=== PATIENT | female | born 1980 | race Caucasian/White ===

== ENCOUNTER 2020-10-03 18:19 | Emergency (ER) | payer SELFPAY ==
[~2020-10-03] VITALS: Ht 157.5 cm; Wt 64.4 kg
[2020-10-03 18:33] VITALS: BP 142/80
[2020-10-03] MEDS ORDERED: CLIN150C1 PO (20:29)
[2020-10-03] MEDS ORDERED: [UNRECOGNIZED DRUG - CODE] TP (20:29)
[2020-10-03 20:43] VITALS: BP 142/80
== END 2020-10-03 20:40 | disposition home or self-care (01) ==
LOC: MED 18:19
DX: L03.115 Cellulitis of right lower limb (principal)
CPT/HCPCS: 99283

== ENCOUNTER 2020-10-06 14:42 | Emergency (ER) | payer SELFPAY ==
[~2020-10-06] VITALS: Ht 157.5 cm; Wt 64.4 kg
[~2020-10-06 14:42] MED LIST: CLIN150C1 PO; [UNRECOGNIZED DRUG - CODE] TP
[2020-10-06 14:44] VITALS: BP 124/82
--- NOTE | 2020-10-06 14:55 | NUR ---
ROC SHANKS AT BEDSIDE EVALUATING PT
--- NOTE | 2020-10-06 15:10 | NUR ---
20 G IV ESTABLISHED TO L . BLOOD SAMPLE COLLECTED VIA IV AND SAMPLES HANDED TO WAIST CUTTER.
[2020-10-06] MEDS ORDERED: KETOROLAC 30 MG/ML VIAL IVP ONE (15:15)
[2020-10-06 15:27] LABS: BASOPHILS % (AUTO) 0.4 % (0.0-2.0); EOSINOPHILS # (AUTO) 0.1 K/uL (0-0.4); EOSINOPHILS % (AUTO) 2.5 % (0.0-4.0); HEMATOCRIT 39.1 % (36-48); HEMOGLOBIN 13.2 g/dL (12.0-16.0); LYMPHOCYTES # (AUTO) 1.2 K/uL (2.5-16.5); LYMPHOCYTES % (AUTO) 23.7 % (20.5-51.1); MEAN CORPUSCULAR HEMOGLOBIN 29 pg (27-31); MEAN CORPUSCULAR HGB CONC 34 g/dL (33-37); MEAN CORPUSCULAR VOLUME 86.5 fL (80-94); MONOCYTES # (AUTO) 0.4 K/uL (0.8-1.0); MONOCYTES % (AUTO) 8.2 % (1.7-9.3); NEUTROPHILS # (AUTO) 3.4 K/uL (1.8-7.7); NEUTROPHILS % (AUTO) 65.2 % (42.2-75.2); PLATELET COUNT (AUTO) 317 K/uL (140-450); RED BLOOD CELL COUNT(AUTO) 4.52 MIL/uL (4.20-5.40); RED CELL DISTRIBUTION WIDTH 13.8 % (11.6-13.7); WHITE BLOOD COUNT (AUTO) 5.3 K/uL (4.8-10.8)
[2020-10-06] MEDS ORDERED: KETOROLAC 60 MG/2 ML VIAL IM ONE (15:32)
[2020-10-06 15:43] LABS: ALBUMIN 4.2 g/dL (3.4-5.0); ANION GAP 12.1 (8-16); CARBON DIOXIDE 26.9 mmol/L (21-32); CREATININE 0.9 mg/dL (0.6-1.3); TOTAL BILIRUBIN 0.7 mg/dL (0.0-1.0)
--- NOTE | 2020-10-06 15:53 | NUR ---
RAD AT BEDSIDE
[2020-10-06] MEDS ORDERED: CEPH-588 PO (16:09)
[2020-10-06] MEDS ORDERED: BACTO TP (16:09)
--- NOTE | 2020-10-06 16:37 | NUR ---
PATIENT HERE FOR RECHECK OF CELLULITIS TO RIGHT LOWER LEG, RETURNS WITH C/O WOUND DEEPER AND MORE PAINFUL. PHOTOS WITH MEASUREMENTS OBTAINED. IV ACCESS OBTAINED, LABS AND BLOOD CULTURES OBTAINED, MEDICATED FOR PAIN. PATIENT IS AWAKE ALERT, SKIN IS OTHERWISE WARM AND DRY, RESP EVEN AND UNLABORED, ABD SOFT AND NON DISTENDED. BED IN LOW POSITION WITH SIDERAILS UP. PATIENT ENDORSES HX OF LUPUS.
[2020-10-06 16:45] VITALS: BP 124/82
--- NOTE | 2020-10-06 16:51 | NUR ---
Patient discharged with v/s stable. Written and verbal after care instructions given and explained. Patient alert, oriented and verbalized understanding of instructions. Ambulatory with steady gait. All questions addressed prior to discharge. ID band removed. Patient advised to follow up with PMD. Rx of MUPIROCHIN AND CEPHALEXIN given. Patient educated on indication of medication including possible reaction and side effects. Opportunity to ask questions provided and answered.
== END 2020-10-06 16:51 | disposition home or self-care (01) ==
LOC: MED 14:42
DX: L03.116 Cellulitis of left lower limb (principal)
CPT/HCPCS: 36415; 73590; 80053; 83605; 85025; 87040; 96374; 99284; J1885

== ENCOUNTER 2020-10-08 16:40 | Emergency (ER) | payer SELFPAY ==
[~2020-10-08] VITALS: Ht 157.5 cm; Wt 64.4 kg
[~2020-10-08 16:40] MED LIST changes: +BACTO TP; +CEPH-588 PO
[2020-10-08 17:02] VITALS: BP 117/84
--- NOTE | 2020-10-08 17:42 | NUR ---
Patient transferred to bed 4 via wheelchair by tech. Family at bedside.
--- NOTE | 2020-10-08 17:50 | NUR ---
3 Y/O FEMALE C/O RT LEG PAIN. WOUND TO RT LOWER LEG FOR 10 DAYS. WAS SEEN HERE AT [facility] ON WEDNESDAY FOR SAME C/O. TENDER TO TOUCH. REDNESS NOTED, DENIES ANY RECENT DISCHARGE OR FEVER. PT STATES 9/10 PAIN. PMH: LUPUS, CELLULITIS NKA
--- NOTE | 2020-10-08 17:59 | NUR ---
DR DAVIS AT BEDSIDE EXAMINIING PT
[2020-10-08] MEDS ORDERED: KETOROLAC 30 MG/ML VIAL IM ONE ×2 (18:25→18:45)
[2020-10-08 19:02] VITALS: BP 117/84
--- NOTE | 2020-10-08 19:02 | NUR ---
Patient discharged with v/s stable. Written and verbal after care instructions given and explained. Patient alert, oriented and verbalized understanding of instructions. Ambulatory with steady gait. All questions addressed prior to discharge. ID band removed. Patient advised to follow up with PMD. Opportunity to ask questions provided and answered.
== END 2020-10-08 19:02 | disposition home or self-care (01) ==
LOC: MED 16:40
DX: T24.001A Burn of unspecified degree of unspecified site of right lower limb, except ankle and foot, initial encounter (principal); Z79.899 Other long term (current) drug therapy; X08.8XXA Exposure to other specified smoke, fire and flames, initial encounter; Y93.89 Activity, other specified; Y92.89 Other specified places as the place of occurrence of the external cause; Y99.8 Other external cause status
CPT/HCPCS: 96372; 99284; J1885

== ENCOUNTER 2023-04-15 16:34 | Emergency (ER) | payer MEDICAID, OTHER ==
[~2023-04-15] VITALS: Ht 152.4 cm; Wt 72.6 kg
[2023-04-15 16:57] VITALS: BP 141/90; PULSE 93; RESP 20; TEMP 98.7; O2SAT 98
[2023-04-15] MEDS ORDERED: GABAPENTIN 300 MG CAP PO ONE (17:40)
[2023-04-15] MEDS ORDERED: HYDROcodone/APAP 5/325 MG 1 TAB TAB PO ONE (17:40)
[2023-04-15 18:00] LABS: BASOPHILS % (AUTO) 0.4 % (0.0-2.0); EOSINOPHILS # (AUTO) 0.1 K/uL (0-0.4); EOSINOPHILS % (AUTO) 2.5 % (0.0-4.0); HEMATOCRIT 35.5 % (36-48); LYMPHOCYTES # (AUTO) 0.9 K/uL (2.5-16.5); LYMPHOCYTES % (AUTO) 21.2 % (20.5-51.1); MEAN CORPUSCULAR HEMOGLOBIN 27 pg (27-31); MEAN CORPUSCULAR HGB CONC 34 g/dL (33-37); MEAN CORPUSCULAR VOLUME 79.8 fL (80-94); MONOCYTES # (AUTO) 0.2 K/uL (0.8-1.0); MONOCYTES % (AUTO) 5.5 % (1.7-9.3); NEUTROPHILS # (AUTO) 3.1 K/uL (1.8-7.7); NEUTROPHILS % (AUTO) 70.4 % (42.2-75.2); PLATELET COUNT (AUTO) 369 K/uL (140-450); RED BLOOD CELL COUNT(AUTO) 4.45 MIL/uL (4.20-5.40); RED CELL DISTRIBUTION WIDTH 14.1 % (11.6-13.7); WHITE BLOOD COUNT (AUTO) 4.4 K/uL (4.8-10.8)
[2023-04-15 18:19] LABS: ANION GAP 13.4 (8-16); CALCIUM 9.1 mg/dL (8.5-10.1); CARBON DIOXIDE 28.1 mmol/L (21-32); CREATININE 0.7 mg/dL (0.6-1.3); POTASSIUM 3.5 mmol/L (3.5-5.1)
[2023-04-15 18:23] LABS: INR 0.95 (0.8-1.2); PARTIAL THROMBOPLASTIN TIME 23.8 secs (22-35.6)
[2023-04-15 18:26] LABS: ALBUMIN 3.7 g/dL (3.4-5.0); BILIRUBIN,DIRECT 0.1 mg/dL (0.0-0.3); TOTAL BILIRUBIN 0.3 mg/dL (0.0-1.0); TOTAL PROTEIN, SERUM 9.5 g/dL (6.4-8.2)
[2023-04-15 19:05] LABS: APPEARANCE,URINE CLEAR (CLEAR); BILIRUBIN,URINE NEGATIVE (NEGATIVE); BLOOD, URINE NEGATIVE (NEGATIVE); COLOR,URINE YELLOW (YELLOW); LEUKOCYTE ESTERASE ,URINE NEGATIVE (NEGATIVE); NITRITE, URINE NEGATIVE (NEGATIVE); PH,URINE 6.5 (5.0-9.0); PROTEIN,URINE NEGATIVE (NEGATIVE); UGLUCOSE NEGATIVE (NEGATIVE); UROBILINOGEN,URINE 0.2 EU/dL (0.2 - 1)
[2023-04-15 20:15] VITALS: BP 141/90; PULSE 93; RESP 20; TEMP 98.7; O2SAT 98
== END 2023-04-15 20:15 | disposition home or self-care (01) ==
LOC: MED 16:34
DX: M79.661 Pain in right lower leg (principal); M79.662 Pain in left lower leg; R21 Rash and other nonspecific skin eruption; R03.0 Elevated blood-pressure reading, without diagnosis of hypertension; Z79.899 Other long term (current) drug therapy
CPT/HCPCS: 36415; 80048; 80076; 81003; 81025; 85025; 85610; 85651; 85730; 86140; 93970; 99284